=== PATIENT | male | born 1955 | race Caucasian/White ===

== ENCOUNTER → 2020-11-29 | Outpatient (CLI) | payer BC ==
[2020-11-29 13:27] LABS: BUN/CREATININE RATIO 21 (0-10)
[2020-11-30 09:11] LABS: VITAMIN D, 25-HYDROXY 29.5 ng/mL (30.0-100.0)
[2020-11-30 15:12] LABS: A/G RATIO 1.1 (0.7-1.7); ALBUMIN 3.8 g/dL (2.9-4.4); ALPHA-1-GLOBULIN 0.3 g/dL (0.0-0.4); ALPHA-2-GLOBULIN 1.1 g/dL (0.4-1.0); BETA GLOBULIN 1.2 g/dL (0.7-1.3); GAMMA GLOBULIN 0.8 g/dL (0.4-1.8); GLOBULIN, TOTAL 3.5 g/dL (2.2-3.9); M-SPIKE Not Observed g/dL (Not Observed); PROTEIN, TOTAL, SERUM 7.3 g/dL (6.0-8.5)
== END ==
LOC: LAB 12:19
PROVIDERS: Family Medicine
DX: I10 Essential (primary) hypertension (principal); E78.5 Hyperlipidemia, unspecified; E21.0 Primary hyperparathyroidism; E83.52 Hypercalcemia
CPT/HCPCS: 36415; 80053; 80061; 82330; 83735; 83970; 84100; 84155; 84165; 84443